=== PATIENT | female | born 1995 | race Caucasian/White ===

== ENCOUNTER 2021-01-07 16:10 | Emergency (ER) | payer OTHER ==
[2021-01-07 16:38] VITALS: BP 141/86; PULSE 88; TEMP 99.3; BMI 26.0
[2021-01-07 18:55] LABS: HIV INTERPRETATION NEGATIVE (NEGATIVE)
== END 2021-01-07 17:08 | disposition home or self-care (01) ==
LOC: FER 16:10
DX: S41.151A Open bite of right upper arm, initial encounter (principal); Y04.1XXA Assault by human bite, initial encounter; Z20.6 Contact with and (suspected) exposure to human immunodeficiency virus [HIV]
CPT/HCPCS: 36415; 80074; 87389; 99283-25

== ENCOUNTER 2021-05-07 14:35 | Emergency (ER) | payer OTHER ==
[2021-05-07 14:48] VITALS: BP 127/71; PULSE 73; TEMP 98; BMI 24.7
[2021-05-07] MEDS ORDERED: IBUPROFEN 600 MG TABLET (FP) PO ONE ×2 (15:30→15:32)
== END 2021-05-07 16:54 | disposition home or self-care (01) ==
LOC: FER 14:35
DX: S00.93XA Contusion of unspecified part of head, initial encounter (principal)
CPT/HCPCS: 70486-TC; 81025; 99284-25

== ENCOUNTER 2022-05-10 16:35 | Emergency (ER) | payer OTHER ==
[2022-05-10 16:59] VITALS: BP 122/79; PULSE 94; TEMP 99.1; BMI 24.5
[2022-05-10] MEDS ORDERED: IBUPROFEN 600 MG TABLET (FP) PO ONE ×2 (17:01→17:13)
== END 2022-05-10 17:28 | disposition home or self-care (01) ==
LOC: FER 16:35
DX: S20.219A Contusion of unspecified front wall of thorax, initial encounter (principal)
CPT/HCPCS: 99283-25

== ENCOUNTER 2023-04-30 11:52 | Emergency (ER) | payer OTHER ==
[2023-04-30 12:07] VITALS: BP 123/79; PULSE 112; RESP 18; TEMP 98.4; BMI 24.5
== END 2023-04-30 13:31 | disposition home or self-care (01) ==
LOC: FER 11:52
DX: S56.911A Strain of unspecified muscles, fascia and tendons at forearm level, right arm, initial encounter (principal); X50.1XXA Overexertion from prolonged static or awkward postures, initial encounter; Y93.72 Activity, wrestling
CPT/HCPCS: 99282-25

== ENCOUNTER 2023-05-17 17:40 | Emergency (ER) | payer OTHER ==
[2023-05-17 17:51] VITALS: BP 125/89; PULSE 81; RESP 16; TEMP 98.1; BMI 24.5
[2023-05-17] MEDS ORDERED: KETOROLAC TROMETHAMINE 30 MG/1 ML VIAL IM ONE (17:57)
[2023-05-17] MEDS ORDERED: ACETAMINOPHEN 325 MG TABLET (FP) PO ONE (17:58)
[2023-05-17] MEDS ORDERED: KETOROLAC TROMETHAMINE 30 MG/1 ML VIAL ONE (18:04)
[2023-05-17] MEDS ORDERED: ACETAMINOPHEN 325 MG TABLET (FP) ONE (18:04)
== END 2023-05-17 18:25 | disposition home or self-care (01) ==
LOC: FER 17:40
PROC: 3E023GC Introduction of Other Therapeutic Substance into Muscle, Percutaneous Approach (ICD-10-PCS; principal; 2023-05-17)
DX: R51.9 Headache, unspecified (principal); M54.2 Cervicalgia; V49.40XA Driver injured in collision with unspecified motor vehicles in traffic accident, initial encounter
CPT/HCPCS: 99284-25

== ENCOUNTER 2024-05-10 15:48 | Emergency (ER) | payer OTHER ==
[2024-05-10] MEDS ORDERED: IBUPROFEN 400 MG TABLET (FP) PO ONE (16:08)
[2024-05-10] MEDS: IBUPROFEN 600 MG TABLET (FP) PO ONE (16:09)
[2024-05-10 16:17] VITALS: BP 109/80; PULSE 88; RESP 15; TEMP 98.2; BMI 23.8
== END 2024-05-10 16:47 | disposition home or self-care (01) ==
LOC: FER 15:48
DX: S59.901A Unspecified injury of right elbow, initial encounter (principal); X50.1XXA Overexertion from prolonged static or awkward postures, initial encounter; Y35.811A Legal intervention involving manhandling, law enforcement official injured, initial encounter
CPT/HCPCS: 73070-TC-RT-FY; 99283-25

== ENCOUNTER 2024-12-04 11:56 | Emergency (ER) | payer OTHER, BC ==
[2024-12-04 12:13] VITALS: BP 123/74; PULSE 115; RESP 16; TEMP 98.5; BMI 23.3
== END 2024-12-04 12:47 | disposition home or self-care (01) ==
LOC: FER 11:56
DX: S00.511A Abrasion of lip, initial encounter (principal); M79.642 Pain in left hand; M25.561 Pain in right knee; M25.562 Pain in left knee; M79.641 Pain in right hand; W00.0XXA Fall on same level due to ice and snow, initial encounter
CPT/HCPCS: 99283-25

== ENCOUNTER 2025-06-18 09:28 | Emergency (ER) | payer OTHER, BC ==
[2025-06-18 09:33] VITALS: BP 122/84; PULSE 100; RESP 18; TEMP 98.3; BMI 22.6
[2025-06-18] MEDS ORDERED: ACETAMINOPHEN 500 MG TABLET (FP) ONE (09:42)
[2025-06-18] MEDS ORDERED: ONDANSETRON *ODT* 4 MG TABLET ONE (09:42)
[2025-06-18] MEDS: ACETAMINOPHEN 500 MG TABLET (FP) PO ONE (09:50)
[2025-06-18] MEDS: ONDANSETRON *ODT* 4 MG TABLET SL ONE (09:51)
== END 2025-06-18 11:04 | disposition home or self-care (01) ==
LOC: JER 09:28 → JERFT 09:28
DX: S06.0X0A Concussion without loss of consciousness, initial encounter (principal); R11.0 Nausea; R42 Dizziness and giddiness; M43.6 Torticollis; Y35.811A Legal intervention involving manhandling, law enforcement official injured, initial encounter
CPT/HCPCS: 70450-TC; 99284-25; Q0162